=== PATIENT | male | born 1980 | race Caucasian/White ===

== ENCOUNTER → 2021-01-31 | Outpatient (REF) | payer OTHER, MEDICAID | LOC: M LAB REF 13:15 | PROVIDERS: ATTEND Internal Medicine Nephrology | DX: N18.31 Chronic kidney disease, stage 3a (principal); E87.6 Hypokalemia ==

== ENCOUNTER → 2021-02-14 | Outpatient (REF) | payer OTHER, MEDICAID | LOC: M LAB REF 13:23 | PROVIDERS: ATTEND Internal Medicine Nephrology | DX: E83.42 Hypomagnesemia (principal) ==